=== PATIENT | male | born 2000 | race Hispanic/Latino ===

== ENCOUNTER 2018-06-14 11:11 | Emergency (ER) | payer OTHER ==
[~2018-06-14] VITALS: Ht 170.2 cm; Wt 61.2 kg
[~2018-06-14 11:11] MED LIST: AUGMENTIN 875-1 EACH PO; CYCLOBENZAPRINE10 M1 PO; IBUPROFEN600 M1 PO; MOTRIN600 MG PO
[2018-06-14 12:50] LABS: ABSOLUTE BASOPHIL COUNT 0 /CUMM (0.0-0.2); ABSOLUTE EOSINOPHIL COUNT 0.3 /CUMM (0.0-0.7); ABSOLUTE GRANULOCYTE CT 2.9 /CUMM (1.4-6.5); ABSOLUTE LYMPH COUNT 2.5 /CUMM (1.2-3.4); ABSOLUTE MONOCYTE COUNT 0.4 /CUMM (0.10-0.60); BASOPHIL % 0.4 % (0.0-2.0); EOSINOPHIL % 4.6 % (0-5); GRANULOCYTE % 47.5 % (42.2-75.2); HEMATOCRIT 46.5 % (42-52); MEAN CORPUSCULAR HGB 30.3 PG (27.0-31.0); MEAN CORPUSCULAR HGB CONC 34.2 G/DL (33.0-37.0); MEAN CORPUSCULAR VOLUME 88.5 FL (80.0-94.0); MEAN PLATELET VOLUME 8.7 FL (7.4-10.4); PLATELET COUNT 231 /CUMM (130-400); RBC DISTRIBUTION WIDTH 13.4 % (11.5-14.5); RED BLOOD CELL CT 5.26 /CUMM (4.70-6.10); WHITE BLOOD CELL COUNT 6.1 /CUMM (4.8-10.8)
[2018-06-14 12:53] LABS: PT 11.3 SEC (9.4-12.5); PTT 29 SEC (25-37)
--- NOTE | 2018-06-14 14:15 | ED GI/GU/ABDOMINAL COMPLAINT ---
History of Present Illness General Chief Complaint: General Adult Stated Complaint: "I NEED TO TALK TO SOMEBODY" Source: patient Exam Limitations: no limitations Vital Signs & Intake/Output Vital Signs & Intake/Output Vital Signs Date Time Temp Pulse Resp B/P B/P Pulse O2 O2 Flow FiO2 Mean Ox Delivery Rate 06/14 1115 97.1 100 18 122/75 98 Room Air Allergies Coded Allergies: NO KNOWN ALLERGIES (05/09/12) Reconcile Medications Cyclobenzaprine HCl 10 MG TABLET 1 TAB PO TID PRN muscle strain Ibuprofen 600 MG TABLET 1 TAB PO Q6PRN PRN pain with food Triage Note: PT STATES THAT HE MOVED HIS BOWELS LAST PM AND THAT THERE WAS A LOT OF BRIGHT RED BLOOD ON THE TOILET PAPER WHEN HE WIPED. THIS AM HAD BM BUT THERE WAS NO BLOOD, PT STATES THAT HE IS CONCERNED DUE TO HE TAKES MEDS FOR HIV Triage Nurses Notes Reviewed? yes HPI: 18 yo male with a history of HIV presents today for rectal bleeding last night. Patient states that he was feeling constipated and needed to use the bathroom. He was straining and unable to have a bowel movement but went to wipe and found blood on the tisue that was bright red. He denied any pain just blood when he wiped. Admits that this happened previously a few months ago with one episode. He had a bowel movement this morning with stool that was hard and brown in color followed by soft stool a few hours after. He states that he had anal sex one week prior with no bleeding involved. Denies any abdominal pain, chest pain, fever, nausea, diarrhea, chills, cough, dizzines, and headache. He states that his CD4 count is above 900 and that he in managing well with treatment. Past History Travel History Traveled to [place] past 21 day No Medical History Any Pertinent Medical History? see below for history Neurological: NONE EENT: NONE Cardiovascular: NONE Respiratory: NONE Gastrointestinal: NONE Hepatic: NONE Renal: NONE Musculoskeletal: NONE Psychiatric: NONE Endocrine: NONE Blood Disorders: HIV Cancer(s): NONE MAIL DELIVERER/Reproductive: NONE Surgical History Surgical History: none Psychosocial History What is your primary language Swedish Tobacco Use: Never used ETOH Use: denies use Illicit Drug Use: denies illicit drug use Family History Hx Contributory? No Review of Systems Review of Systems Constitutional: Reports: no symptoms, see HPI. EENTM: Reports: no symptoms, see HPI. Respiratory: Reports: no symptoms, see HPI. Cardiovascular: Reports: no symptoms, see HPI. GI: Reports: see HPI, constipation. Genitourinary: Reports: no symptoms, see HPI. Musculoskeletal: Reports: no symptoms, see HPI. Skin: Reports: no symptoms, see HPI. Neurological/Psychological: Reports: no symptoms, see HPI. Hematologic/Endocrine: Reports: no symptoms, see HPI. Immunologic/Allergic: Reports: see HPI, HIV/AIDS. Physical Exam Physical Exam General Appearance: well developed/nourished, no apparent distress, alert, awake Head: atraumatic, normal appearance Eyes: Bilateral: normal appearance, PERRL, EOMI, normal inspection. Ears, Nose, Throat, Mouth: hearing grossly normal, Tympanic normal Neck: normal inspection, supple, full range of motion, normal alignment Respiratory: normal breath sounds, no respiratory distress Cardiovascular: regular rate/rhythm Gastrointestinal: normal bowel sounds, soft, non-tender, no organomegaly Back: normal inspection, normal range of motion Extremities: normal range of motion Neurologic/Psych: no motor/sensory deficits, awake, alert, oriented x 3, normal gait, normal mood/affect Skin: intact, normal color, warm/dry Core Measures ACS in differential dx? No Sepsis Present: No Sepsis Focused Exam Completed? No Progress Differential Diagnosis: bowel obstruction, colon cancer, hemorrhoids, PUD/GERD Plan of Care: Orders Procedure Date/time Status PARTIAL THROMBOPLASTIN TIME 06/14 1210 Complete PROTHROMBIN TIME 06/14 1210 Complete COMPREHENSIVE METABOLIC PANEL 06/14 1210 Complete CBC WITHOUT DIFFERENTIAL 06/14 1210 Complete Laboratory Tests 06/14/18 1222: Anion Gap 10, Estimated GFR > 60, BUN/Creatinine Ratio 17.5, Glucose 87, Calcium 9.7, Total Bilirubin 0.4, AST 19, ALT 31, Alkaline Phosphatase 62, Total Protein 7.0, Albumin 4.5, Globulin 2.5, Albumin/Globulin Ratio 1.8, PT 11.3, INR 1.04, APTT 29, CBC w Diff NO MAN DIFF REQ, RBC 5.26, MCV 88.5, MCH 30.3, MCHC 34.2, RDW 13.4, MPV 8.7, Gran % 47.5, Lymphocytes % 41.0, Monocytes % 6.5, Eosinophils % 4.6, Basophils % 0.4, Absolute Granulocytes 2.9, Absolute Lymphocytes 2.5, Absolute Monocytes 0.4, Absolute Eosinophils 0.3, Absolute Basophils 0 CBC normal. Per patient he follows up well for his HIV and his CD4 count has been normal. Likely internal hermorrhoids, less likely anal fissure. Do not suspect active bleed. Will discharge with outpatient follow up. Initial ED EKG: none Departure Departure Disposition: HOME OR SELF CARE Condition: Stable Clinical Impression Primary Impression: Rectal bleeding Referrals: Tisha Newell APRN (PCP/Family) Additional Instructions: Follow up with your PCP. Return to ER if any new or worsening symptoms. Eat a high fiber diet and drink plenty of water. Departure Forms: Customer Survey General Discharge Information
[2018-06-14 15:34] VITALS: BP 117/62
== END 2018-06-14 15:32 ==
LOC: ERH 11:11
PROVIDERS: Physician Assistant Medical
DX: K62.5 Hemorrhage of anus and rectum (principal); B20 Human immunodeficiency virus [HIV] disease